=== PATIENT | female | born 1955 | race Caucasian/White ===

== ENCOUNTER 2016-09-29 08:58 | Inpatient (IN) | payer BC ==
[2016-09-29] VITALS (283 sets, daily range): BP systolic 112–137; BP diastolic 61–81; PULSE 70–92; TEMP 97–98; O2SAT 91–100
[~2016-09-29] VITALS: Ht 167.6 cm; Wt 82.5 kg
[~2016-09-29 08:58] MED LIST: AMITRIPTYLINE H10 M1 PO; CIPRO 500MG TA500 MG PO; CITRIMAX 250250 MG PO; DIFLUCAN150 MG PO; FLAGYL500 MG PO; LEVAQUIN 5500 MG/TA1 PO; PREMARIN0.45 MG PO; ZOFRAN ODT4 MG PO
[2016-09-29] MEDS ORDERED: NATURAL FLAX1000 MG PO (09:06)
[2016-09-29] MEDS ORDERED: ESTRACE 1MG1 MG/TAB PO (09:06)
[2016-09-29 09:57] LABS: BASO % 0.4 % (0.0-2.0); EOS % 0.4 % (0-4.0); GRAN # 5.3 (1.4-6.5); GRAN % 72.5 % (42.2-75.2); LYMPH # 1.2 (1.2-3.4); LYMPH % 16.6 % (20.0-51.0); MEAN CELL VOLUME 92 fl (80.0-100.0); MEAN CORPUSCULAR HGB CONC 34 g/dl (33.0-37.0); MEAN PLATELET VOLUME 10.3 fl (7.4-10.4); MONO # 0.7 (0.1-0.6); MONO % 9.7 % (1.7-9.3); PLATELET COUNT 207 K/mm3 (130-400); RED BLOOD COUNT 3.27 M/mm3 (4.10-5.30); WHITE BLOOD COUNT 7.3 K/mm3 (4.8-10.8)
[2016-09-29 09:58] LABS: HEMATOCRIT 30.1 % (37.0-47.0); HEMOGLOBIN 10.2 g/dl (12.5-16.0); MEAN CORPUSCULAR HEMOGLOBIN 31 pg (27.0-31.0)
[2016-09-29 10:10] LABS: ADJUSTED CALCIUM 9.1 mg/dL (8.4-10.2); ALBUMIN 3.2 gm/dL (3.5-5.0); BILIRUBIN,TOTAL 0.6 mg/dL (0.0-1.0); CALCIUM 8.5 mg/dL (8.4-10.2); CREATININE, serum 0.64 mg/dL (0.52-1.25); POTASSIUM 3.7 mmol/L (3.4-5.0); TOTAL PROTEIN 6.1 gm/dL (6.4-8.2)
[2016-09-29 16:00] LABS: HEMATOCRIT 29.1 % (37.0-47.0)
[2016-09-29 16:02] LABS: INR 1.1 (0.8-3.0); PROTHROMBIN TIME 12.3 SECONDS (9.7-12.8)
[2016-09-30] VITALS (200 sets, daily range): BP systolic 11–117; BP diastolic 40–49; PULSE 70–80; TEMP 97.9–98.3; O2SAT 89–100
[2016-09-30 02:11] LABS: HEMATOCRIT 27.1 % (37.0-47.0)
[2016-09-30 17:11] LABS: HEMATOCRIT 24.9 % (37.0-47.0); HEMOGLOBIN 8.3 g/dl (12.5-16.0)
[2016-10-01 05:56] VITALS: BP 110/46; PULSE 69; TEMP 98
[2016-10-01 09:53] LABS: HEMATOCRIT 25.4 % (37.0-47.0); HEMOGLOBIN 8.4 g/dl (12.5-16.0)
[2016-10-01 10:23] VITALS: BP 103/41; PULSE 71; TEMP 99.2
[2016-10-01] MEDS ORDERED: FERROUS SU325 MG/TAB PO (12:03)
== END 2016-10-01 12:55 | disposition home or self-care (01) | DRG 378 ==
LOC: COL.ER 08:58 → IMCU 11:01 → ICU 11:01 → IMCU 11:10 → SURG 09-30 12:05
PROVIDERS: Emergency Medicine; Internal Medicine; Internal Medicine Gastroenterology
PROC: 0DJD8ZZ Inspection of Lower Intestinal Tract, Via Natural or Artificial Opening Endoscopic (ICD-10-PCS; principal; 2016-09-30 07:00)
DX: K57.31 Diverticulosis of large intestine without perforation or abscess with bleeding (principal); D62 Acute posthemorrhagic anemia; E78.5 Hyperlipidemia, unspecified
CPT/HCPCS: 99223-AI; 99232-AI; 99239; C9113; J2250; J2405; J2765; J3010; J7030

== ENCOUNTER 2016-10-12 13:30 | Outpatient (RCR) | payer BC ==
[2016-10-05 11:23] VITALS: BP 112/37; PULSE 72; TEMP 97.6
[2016-10-07 15:00] VITALS: BP 121/46; PULSE 74; TEMP 98.1
[2016-10-10 13:46] LABS: HEMATOCRIT 28.2 % (37.0-47.0); HEMOGLOBIN 9.3 g/dl (12.5-16.0)
[2016-10-10 14:02] VITALS: BP 118/74; PULSE 78; TEMP 98
[~2016-10-12] VITALS: Ht 167.6 cm; Wt 80.2 kg
[~2016-10-12 13:30] MED LIST changes: +ESTRACE 1MG1 MG/TAB PO; +FERROUS SU325 MG/TAB PO; +NATURAL FLAX1000 MG PO
== END 2017-01-03 | disposition home or self-care (01) ==
LOC: EUO
PROVIDERS: Internal Medicine
DX: K57.31 Diverticulosis of large intestine without perforation or abscess with bleeding (principal); D50.0 Iron deficiency anemia secondary to blood loss (chronic)
CPT/HCPCS: J2916

== ENCOUNTER → 2017-01-12 | Outpatient (CLI) | payer BC | LOC: COL.RAD 13:30 | DX: Z13.6 Encounter for screening for cardiovascular disorders (principal) ==

== ENCOUNTER → 2017-04-03 | Outpatient (CLI) | payer BC | LOC: MC.RAD 14:59 | DX: Z12.31 Encounter for screening mammogram for malignant neoplasm of breast (principal) ==

== ENCOUNTER → 2019-06-20 | Outpatient (CLI) | payer BC | LOC: MC.RAD 15:30 | DX: Z12.31 Encounter for screening mammogram for malignant neoplasm of breast (principal) ==

== ENCOUNTER → 2020-07-06 | Outpatient (CLI) | payer BC | LOC: MC.RAD 09:00 | DX: Z12.31 Encounter for screening mammogram for malignant neoplasm of breast (principal) ==

== ENCOUNTER → 2021-07-22 | Outpatient (CLI) | payer MEDICARE, BC | LOC: MC.RAD 07-08 13:15 | DX: Z12.31 Encounter for screening mammogram for malignant neoplasm of breast (principal); R92.8 Other abnormal and inconclusive findings on diagnostic imaging of breast ==

== ENCOUNTER → 2021-08-02 | Outpatient (CLI) | payer MEDICARE, BC | LOC: MC.RAD 06:58 | DX: N64.89 Other specified disorders of breast (principal) ==

== ENCOUNTER → 2021-08-18 | Outpatient (CLI) | payer MEDICARE, BC | LOC: MC.RAD 08:17 | DX: D05.11 Intraductal carcinoma in situ of right breast (principal); R92.0 Mammographic microcalcification found on diagnostic imaging of breast ==

== ENCOUNTER 2021-09-08 06:55 | Day surgery (SDC) | payer MEDICARE, BC ==
[~2021-09-08] VITALS: Ht 167.6 cm; Wt 86.3 kg
[2021-09-08] MEDS ORDERED: CENTRUM SILVER1 TAB (08:31)
[2021-09-08] MEDS ORDERED: AMITRIPTYLINE H10 M1 PO (08:32)
[2021-09-08] MEDS ORDERED: GLUCOSAMINE MSM1 TAB PO (08:33)
[2021-09-08 08:39] VITALS: BP 146/75; PULSE 86; TEMP 97
[2021-09-08] MEDS ORDERED: ULTRAM 50MG TAB50 MG PO (10:30)
[2021-09-08 11:10] VITALS: BP 120/60; PULSE 70; TEMP 97.4
--- NOTE | 2021-09-08 11:10 | NUR ---
RECEIVED PT FROM MANAGER LATIN TO BAY 6. REPORT RECEIVED. VS OBTAINED. PT DENIES ANY PAIN AT THIS TIME. DRESSING C/D/I. REORIENTED PT TO ROOM AND CALL LIGHT. WILL CONTINUE TO MONITOR PT.
[2021-09-08 11:25] VITALS: BP 122/58; PULSE 66
--- NOTE | 2021-09-08 11:25 | NUR ---
PT CONTINUES TO REST COMFORTABLY. DENIES ANY PAIN AT THIS TIME. WILL CONTINUE TO MONIOTR PT. TOLERATING ICE CHIPS WITHOUT DIFFICULTY.
[2021-09-08 11:40] VITALS: BP 133/58; PULSE 64
--- NOTE | 2021-09-08 11:40 | NUR ---
PT CONTINUES TO REST COMFORTABLY. DENIES ANY NEEDS AT THIS TIME. WILL CONTINUE TO MONITOR PT.
[2021-09-08 11:55] VITALS: BP 123/57; PULSE 67
--- NOTE | 2021-09-08 11:55 | NUR ---
PT CONTINUES TO REST. DENIES ANY NEEDS AT THIS TIME. WILL CONTINUE TO MONITOR.
[2021-09-08 12:25] VITALS: BP 132/64; PULSE 70
--- NOTE | 2021-09-08 12:25 | NUR ---
PT CONTINUES TO DENY ANY PAIN. PT TOLERATING WATER AND MUFFIN. WILL CONTINUE TO MONITOR PT.
--- NOTE | 2021-09-08 12:50 | NUR ---
DISCHARGE INSTRUCTIONS GIVEN TO PT. VERBALIZED UNDERSTANDING OF HOME AND FOLLOW UP CARE. ALL QUESTIONS ANSWERED. DISCHARGE PAPERWORK GIVEN TO PT.
== END 2021-09-08 13:10 | disposition home or self-care (01) ==
LOC: SDCO 06:55
DX: C50.911 Malignant neoplasm of unspecified site of right female breast (principal); I10 Essential (primary) hypertension; E78.5 Hyperlipidemia, unspecified; Z85.828 Personal history of other malignant neoplasm of skin; G47.33 Obstructive sleep apnea (adult) (pediatric); G62.9 Polyneuropathy, unspecified; K21.9 Gastro-esophageal reflux disease without esophagitis; G47.30 Sleep apnea, unspecified; Z79.899 Other long term (current) drug therapy; Z99.89 Dependence on other enabling machines and devices; E78.00 Pure hypercholesterolemia, unspecified; Z90.49 Acquired absence of other specified parts of digestive tract; Z80.42 Family history of malignant neoplasm of prostate; Z82.3 Family history of stroke
CPT/HCPCS: A4648; J0690; J1100; J2250; J2405; J2704; J2795; J3010; J7120; Q9968